=== PATIENT | female | born 1995 | race Caucasian/White ===

== ENCOUNTER 2017-04-18 14:15 | Emergency (ER) | payer OTHER ==
--- NOTE | 2017-04-18 14:44 | ER Document Report ---
ED Medical Screen (RME) - General Chief Complaint: Abdominal Pain Stated Complaint: ABDOMINAL/BACK PAIN Time Seen by Provider: 04/18/17 14:40 Notes: 21-year-old female patient comes emergency room complaining of back pain and lower abdominal pain that started yesterday while she was moving boxes. She resumed moving boxes today and also had pain. She had a panic attack today by history. She is 14 weeks , her last ultrasound was 3 weeks ago. There is no bleeding or discharge. She is visiting from [place]. I have greeted and performed a rapid initial assessment of this patient. A comprehensive ED assessment and evaluation of the patient, analysis of test results and completion of the medical decision making process will be conducted by additional ED providers. TRAVEL OUTSIDE OF THE [place] IN LAST 30 DAYS: No - Related Data Allergies/Adverse Reactions: iodine Allergy (Verified 04/18/17 14:28) Past Medical History Renal/ Medical History: Denies: Hx Peritoneal Dialysis Physical Exam - Vital signs Vitals: Temp Pulse Resp BP Pulse Ox 98.8 F 76 14 106/60 98 04/18/17 14:25 04/18/17 14:25 04/18/17 14:25 04/18/17 14:25 04/18/17 14:25 Course - Vital Signs Vital signs: Temp Pulse Resp BP Pulse Ox 98.8 F 76 14 106/60 98 04/18/17 14:25 04/18/17 14:25 04/18/17 14:25 04/18/17 14:25 04/18/17 14:25
[2017-04-18] MEDS ORDERED: ACETAMINOPHEN 325 MG TABLET PO ONE (17:27)
--- NOTE | 2017-04-18 17:37 | ER Document Report ---
ED GI/ - General Chief Complaint: Abdominal Pain Stated Complaint: ABDOMINAL/BACK PAIN Time Seen by Provider: 04/18/17 14:40 Mode of Arrival: Ambulatory Information source: Patient Notes: 21-year-old female presents to ED for abdominal and low back pain since yesterday. She reports she is 14 weeks with a positive ultrasound for an IUP. She states she is visiting friends here and was packing up her belongings that were at the friend's house and moved to [facility]. She states she was lifting boxes yesterday and her abdomen started hurting so she lifted more boxes this morning and had more pain today so she came to the emergency room to make sure everything was okay. TRAVEL OUTSIDE OF THE [place] IN LAST 30 DAYS: No - HPI Patient complains to provider of: Pelvic pain, , Other - low back pain. No: Vaginal bleeding, Vaginal discharge, Vaginal pain Onset: Yesterday Timing/Duration: Intermittent Quality of pain: Sharp Severity at maximum: Moderate Severity in ED: Moderate Pain Level: 3 Location: Low back, Pelvis Vaginal bleeding (Compared to normal period): None LMP: january EDC: 10/18/17 - according to patient Associated symptoms: Other - pelvic and back pain after moving boxes Exacerbated by: Movement, Walking Relieved by: Denies Similar symptoms previously: Yes Recently seen / treated by doctor: No - Related Data Allergies/Adverse Reactions: iodine Allergy (Verified 04/18/17 14:28) Past Medical History - General Information source: Patient - Social History Smoking Status: Never Smoker Cigarette use (# per day): No Chew tobacco use (# tins/day): No Smoking Education Provided: No Frequency of alcohol use: None Drug Abuse: None Lives with: Friend Family History: Reviewed & Not Pertinent - Past Medical History Cardiac Medical History: Reports: None Pulmonary Medical History: Reports: None EENT Medical History: Reports: None Neurological Medical History: Reports: None Endocrine Medical History: Reports: None Renal/ Medical History: Reports: None Malignancy Medical History: Reports: None GI Medical History: Reports: None Musculoskeltal Medical History: Reports Hx Musculoskeletal Deformity - Scoliosis and hip dysplasia Skin Medical History: Reports None Psychiatric Medical History: Reports: Hx Anxiety, Hx Depression Traumatic Medical History: Reports: None Infectious Medical History: Reports: None Surgical Hx: Negative Review of Systems - Review of Systems Constitutional: No symptoms reported EENT: No symptoms reported Cardiovascular: No symptoms reported Respiratory: No symptoms reported Gastrointestinal: No symptoms reported Genitourinary: No symptoms reported Female Genitourinary: , Other - She had some pelvic pain earlier but denied any pain when I examined. denies: Vaginal discharge, Vaginal bleeding Musculoskeletal: Back pain, Muscle pain, Muscle stiffness Skin: No symptoms reported Hematologic/Lymphatic: No symptoms reported Neurological/Psychological: No symptoms reported Physical Exam - Vital signs Vitals: Temp Pulse Resp BP Pulse Ox 98.8 F 76 14 106/60 98 04/18/17 14:25 04/18/17 14:25 04/18/17 14:25 04/18/17 14:25 04/18/17 14:25 Interpretation: Normal - General General appearance: Appears well, Alert - HEENT Head: Normocephalic, Atraumatic Eyes: Normal Pupils: PERRL - Respiratory Respiratory status: No respiratory distress Chest status: Nontender Breath sounds: Normal Chest palpation: Normal - Cardiovascular Rhythm: Regular Heart sounds: Normal auscultation Murmur: No - Abdominal Inspection: Gravid female Distension: No distension Bowel sounds: Normal Tenderness: Nontender. No: Tender Organomegaly: No organomegaly - Back Back: Normal, Tender, Scoliosis. No: Deformity/step-off, CVA tenderness, Vertebra tenderness, Scars, Wounds - Extremities General upper extremity: Normal inspection, Nontender, Normal color, Normal ROM , Normal temperature General lower extremity: Normal inspection, Nontender, Normal color, Normal ROM , Normal temperature, Normal weight bearing. No: Jayne's sign - Neurological Neuro grossly intact: Yes Cognition: Normal Orientation: AAOx4 Shay Coma Scale Eye Opening: Spontaneous Shay Coma Scale Verbal: Oriented [place] Coma Scale Motor: Obeys Commands Shay Coma Scale Total: 15 Speech: Normal Motor strength normal: LUE, RUE, LLE, RLE Sensory: Normal - Psychological Associated symptoms: Normal affect, Normal mood - Skin Skin Temperature: Warm Skin Moisture: Dry Skin Color: Normal Course - Re-evaluation Re-evalutation: 04/18/17 22:56 No signs of cauda equina, no loss of control of bowel bladder, no loss of muscle control of his legs, no saddle anesthesia, no complaint of numbness or tingling down the legs. He states that she had some lower abdominal pelvic pain but no pain examined the patient. Insurance so she was a little dry. She states she had not been drinking enough fluids. Patient was able to drink 3 glasses of water before discharge with no nausea or vomiting or no increase in discomfort. States she was ready to go home that her back was feeling better after her Tylenol. - Vital Signs Vital signs: Temp Pulse Resp BP Pulse Ox 98.8 F 77 16 115/51 L 98 04/18/17 14:25 04/18/17 18:40 04/18/17 18:40 04/18/17 18:40 04/18/17 14:25 - Laboratory Laboratory results interpreted by me: 04/18/17 17:58 Urine Protein 30 H Urine Ketones 80 H Discharge - Discharge Clinical Impression: Pelvic pain affecting Qualifiers: Trimester: first trimester Qualified Code(s): O26.891 - Other specified related conditions, first trimester Low back pain Qualifiers: Chronicity: acute Back pain laterality: bilateral Sciatica presence: without sciatica Qualified Code(s): M54.5 - Low back pain Condition: Stable Disposition: HOME, SELF-CARE Additional Instructions: Pelvic Pain in Lower abdominal pain during can have many causes. We look for serious causes such as appendicitis, tubal , miscarriage, placental separation, or urinary tract infection. Less serious causes of pain include corpus luteum cyst (ovarian cyst of ) or stretching of the pelvic tissues by the enlarging uterus. Sometimes the pain comes from the bowels. If no specific cause for the pain is found, we attribute the pain to stretching of the uterine ligaments. This is called "round ligament strain." It is not dangerous. Just rest until the pain goes away. Call us or come back for reexamination if any problems occur, such as: (1) Pain that becomes more severe, steady, or becomes concentrated in one specific area. Also, pain that is more severe with movement or coughing. (2) Vomiting that persists or becomes more frequent. (3) Blood in the vomitus, urine, or bowel movements. Blood in the stool may have a tarry or black appearance. (4) Shaking chills or fever greater than 100 degrees. (5) The abdomen becomes more distended or swollen. (6) Bowel movements cease. (7) Vaginal bleeding. LOW BACK PAIN: Three out of every four people will have an episode of disabling back pain during their lifetime. Most commonly the pain is due to straining of the muscles and ligaments in the low back. Usual treatment includes: (1) Rest on a firm surface. Avoid lying on your stomach. (2) Ice pack the painful area. After a few days, gentle heat may be used intermittently to relax the area, or ice packs can be continued. (3) Medication may be needed -- muscle relaxers and antiinflammatory medicines are commonly used. (4) As the back improves, exercises are prescribed to strengthen the back and abdominal muscles. Your doctor will advise you on the proper care for your back at each stage in your recovery. You may be better in a few days -- or healing may take several weeks. If new symptoms of a "herniated disc" (radiation of pain, numbness, or tingling down the back of the leg or weakness in the leg) occur, you should be re-examined. Further testing may be necessary. Acetaminophen Acetaminophen may be taken for pain relief or fever control. It's much safer than aspirin, offering a wider range of "safe" dosages. It is safe during . Some brand names are Tylenol, Panadol, Datril, Anacin 3, Tempra, and Liquiprin. Acetaminophen can be repeated every four hours. The following are maximum recommended dosages: WEIGHT Dose Drops Elixir Chewable( 80mg) (LBS.) drprs=droppers tsp=teaspoon 6 40 mg .4 ml (1/2) 6-11 80 mg .8 ml (full) 1/2 tsp 1 tab 12-16 120 mg 1 1/2 drprs 3/4 tsp 1 1/2 tabs 17-23 160 mg 2 drprs 1 tsp 2 tabs 24-30 240 mg 3 drprs 1 1/2 tsp 3 tabs 30-35 320 mg 2 tsp 4 tabs 36-41 360 mg 2 1/4 tsp 4 1 /2 tabs 42-47 400 mg 2 1/2 tsp 5 tabs 48-53 480 mg 3 tsp 6 tabs 54-59 520 mg 3 1/4 tsp 6 1 /2 tabs 60-64 560 mg 3 1/2 tsp 7 tabs 65-70 600 mg 3 3/4 tsp 7 1 /2 tabs 71-76 640 mg 4 tsp 8 tabs 77-82 720 mg 4 1/2 tsp 9 tabs 83-88 800 mg 5 tsp 10 tabs >89 pounds or adults 650 mg to 900 mg Acetaminophen can be repeated every four hours. Maximum daily dose not to exceed 4000 mg. These maximum recommended dosages are slightly higher than the dosages written on the product container, but these dosages are very safe and well below the toxic dosage for acetaminophen. ICE PACKS: Apply ice packs frequently against the painful area. Many different schedules are recommended, such as "20 minutes on, 20 minutes off" or "one hour ice, two hours rest." If you need to work, you may need to go longer between ice treatments. You should plan to have the area ice packed AT LEAST one fourth of the time. The ice should be applied over the wrap, tape, or splint, or over a layer of cloth -- not directly against the skin. Some ice bags have a built-in cloth and can be put directly on the skin. WARM PACKS: After approximately two days, apply gentle heat (such as a heating pad or hot water bottle) for about 20 to 30 minutes about every two hours -- at least four times daily. Warmth and elevation will help you make a more rapid recovery , and will ease the pain considerably. Do not use HOT heat, and never apply heat for longer than 30 minutes. The continuous heat can invisibly damage skin and muscles -- even when no burn is seen on the surface. Damaged muscles can make you MORE sore. FOLLOW-UP CARE: If you have been referred to a physician for follow-up care, call the physician s office for an appointment as you were instructed or within the next two days. If you experience worsening or a significant change in your symptoms, notify the physician immediately or return to the Emergency Department at any time for re-evaluation. Follow-up with your CHECK INSPECTOR is an issue go home or you can return to the emergency room if you continue to have pain.
[2017-04-18 18:18] LABS: APPEARANCE,URINE SLIGHTLY-CLOUDY; BILIRUBIN,URINE NEGATIVE (NEGATIVE); GLUCOSE, URINE NEGATIVE (NEGATIVE); KETONES,URINE 80 mg/dL (NEGATIVE); LEUKOCYTE ESTERASE,URINE NEGATIVE (NEGATIVE); NITRITE,URINE NEGATIVE (NEGATIVE); PROTEIN,URINE 30 mg/dL (NEGATIVE); URINE SPECIFIC GRAVITY 1.027; UROBILINOGEN,URINE NEGATIVE mg/dL (<2.0)
[2017-04-18 18:41] VITALS: BP 115/51
== END 2017-04-18 18:58 | disposition home or self-care (01) ==
LOC: ER 14:15
DX: O26.891 Other specified pregnancy related conditions, first trimester (principal); M54.5 Low back pain; R10.9 Unspecified abdominal pain; M54.9 Dorsalgia, unspecified; Z3A.14 14 weeks gestation of pregnancy
CPT/HCPCS: 81001; 99284